=== PATIENT | male | born 1985 | race Caucasian/White ===

== ENCOUNTER 2017-08-08 10:29 | Emergency (ER) | payer OTHER ==
[2017-08-08] MEDS: FLUORESCEIN OPHTH 1 MG STRIP OD (11:30)
[2017-08-08] MEDS: TETRACAINE 0.5% OPHTH SOLN 4ML OD (11:30)
== END 2017-08-08 12:01 | disposition home or self-care (01) ==
LOC: M ED 10:29
DX: S05.01XA Injury of conjunctiva and corneal abrasion without foreign body, right eye, initial encounter (principal); W31.1XXA Contact with metalworking machines, initial encounter; Y92.89 Other specified places as the place of occurrence of the external cause
CPT/HCPCS: 99283

== ENCOUNTER → 2020-02-29 | Outpatient (CLI) | payer BC, OTHER ==
[~2020-02-29] MED LIST: TOBR0.3S37 OP
[2020-02-29 15:56] LABS: HEMATOCRIT 47.4 % (42.0-52.0); HEMOGLOBIN 15.6 g/dl (13.5-17.5); MEAN CORPUSCULAR HEMOGLOBIN 29.9 pg (27.0-33.0); MEAN CORPUSCULAR HGB CONC 32.9 g/dl (32.0-36.5); MEAN CORPUSCULAR VOLUME 90.8 fl (80.0-96.0); PLATELET COUNT, AUTOMATED 275 10^3/uL (150-450); RED BLOOD COUNT 5.22 10^6/uL (4.30-6.10); WHITE BLOOD COUNT 8.8 10^3/uL (4.0-10.0)
[2020-02-29 16:04] LABS: ALBUMIN 3.8 GM/DL (3.2-5.2); ALT/SGPT 65 U/L (12-78); BILIRUBIN,TOTAL 0.8 MG/DL (0.2-1.0); BLOOD UREA NITROGEN 20 MG/DL (7-18); CALCIUM LEVEL 9.1 MG/DL (8.5-10.1); CARBON DIOXIDE LEVEL 30 MEQ/L (21-32); CHLORIDE LEVEL 103 MEQ/L (98-107); CHOLESTEROL LEVEL 134 MG/DL (<200); CREATININE FOR GFR 1.09 MG/DL (0.70-1.30); FREE T4 1.07 NG/DL (0.76-1.46); GLOMERULAR FILTRATION RATE > 60.0 (>60); GLUCOSE, FASTING 95 MG/DL (70-100); HDL CHOLESTEROL 42 MG/DL (>40); LDL CHOLESTEROL 48 MG/DL (<100); NON-HDL-C 92 MG/DL; POTASSIUM SERUM 4.4 MEQ/L (3.5-5.1); SODIUM LEVEL 139 MEQ/L (136-145); TOTAL PROTEIN 6.9 GM/DL (6.4-8.2); TRIGLYCERIDES LEVEL 219 MG/DL (<150)
[2020-02-29 16:28] LABS: HEMOGLOBIN A1c 5.7 %
[2020-03-02 11:55] LABS: TOTAL 25(OH) VITAMIN D 15.9 NG/ML (30.0-100.0)
== END ==
LOC: M WUC 09:26
PROVIDERS: ATTEND Physician Assistant
DX: Z00.00 Encounter for general adult medical examination without abnormal findings (principal); Z13.1 Encounter for screening for diabetes mellitus; I11.9 Hypertensive heart disease without heart failure; Z13.29 Encounter for screening for other suspected endocrine disorder; Z13.220 Encounter for screening for lipoid disorders

== ENCOUNTER → 2020-06-22 | Outpatient (CLI) | payer BC | LOC: M LABSMTC 10:13 | PROVIDERS: ATTEND Family Medicine | DX: Z20.822 Contact with and (suspected) exposure to COVID-19 (principal) | CPT/HCPCS: C9803; U0003 ==

== ENCOUNTER → 2021-08-26 | Outpatient (CLI) | payer BC | LOC: M EKG 12:35 | DX: R00.1 Bradycardia, unspecified (principal) ==

== ENCOUNTER → 2021-08-26 | Outpatient (CLI) | payer BC ==
[2021-08-26 10:26] LABS: HEMATOCRIT 47.7 % (42.0-52.0); HEMOGLOBIN 16.3 g/dl (13.5-17.5); MEAN CORPUSCULAR HEMOGLOBIN 30.5 pg (27.0-33.0); MEAN CORPUSCULAR HGB CONC 34.2 g/dl (32.0-36.5); MEAN CORPUSCULAR VOLUME 89.2 fl (80.0-96.0); PLATELET COUNT, AUTOMATED 306 10^3/uL (150-450); RED BLOOD COUNT 5.35 10^6/uL (4.30-6.10); WHITE BLOOD COUNT 9.5 10^3/uL (4.0-10.0)
[2021-08-26 10:56] LABS: HEMOGLOBIN A1c 5.4 %
[2021-08-26 11:01] LABS: ALBUMIN 4.1 GM/DL (3.2-5.2); ALT/SGPT 66 U/L (12-78); BILIRUBIN,TOTAL 0.5 MG/DL (0.2-1.0); BLOOD UREA NITROGEN 23 MG/DL (7-18); C REACTIVE PROTEIN QUANTITATIV 1.34 MG/DL (0.00-0.30); CALCIUM LEVEL 9.5 MG/DL (8.5-10.1); CARBON DIOXIDE LEVEL 31 MEQ/L (21-32); CHLORIDE LEVEL 103 MEQ/L (98-107); CHOLESTEROL LEVEL 119 MG/DL (<200); CHOLESTEROL RISK RATIO 2.644 (<5); CREATININE FOR GFR 0.95 MG/DL (0.70-1.30); FREE T4 0.99 NG/DL (0.76-1.46); GLOMERULAR FILTRATION RATE > 60.0 (>60); GLUCOSE, FASTING 98 MG/DL (70-100); HDL CHOLESTEROL 45 MG/DL (>40); LDL CHOLESTEROL 42 MG/DL (<100); NON-HDL-C 74 MG/DL; SODIUM LEVEL 140 MEQ/L (136-145); TOTAL PROTEIN 6.9 GM/DL (6.4-8.2); TRIGLYCERIDES LEVEL 159 MG/DL (<150)
[2021-08-26 11:06] LABS: TOTAL 25(OH) VITAMIN D 35.7 NG/ML (30.0-100.0)
[2021-08-26 11:11] LABS: MALB URINE SIEMENS 12.1 MG/L; MAU/CREAT RATIO 5.2 MCG/MG (0.0-30.0)
== END ==
LOC: M PLALAB 08:34
PROVIDERS: ATTEND Internal Medicine Hematology
DX: E66.9 Obesity, unspecified (principal); Z68.43 Body mass index [BMI] 50.0-59.9, adult

== ENCOUNTER → 2021-09-02 | Outpatient (CLI) | payer BC | LOC: M CARPUL 14:57 | PROVIDERS: ATTEND Internal Medicine Hematology | DX: I42.2 Other hypertrophic cardiomyopathy (principal); Q87.89 Other specified congenital malformation syndromes, not elsewhere classified; Z68.43 Body mass index [BMI] 50.0-59.9, adult ==

== ENCOUNTER → 2022-01-14 | Outpatient (CLI) | payer BC, OTHER | LOC: M SLEEP 20:00 | PROVIDERS: ATTEND Nurse Practitioner Family | DX: G47.33 Obstructive sleep apnea (adult) (pediatric) (principal) ==

== ENCOUNTER → 2022-04-07 | Outpatient (REF) | LOC: M LAB 12:59 | PROVIDERS: ATTEND Nurse Practitioner Adult Health | DX: Z00.00 Encounter for general adult medical examination without abnormal findings (principal) ==

== ENCOUNTER → 2022-07-19 | Outpatient (REF) | LOC: M EMP 09:49 | PROVIDERS: ATTEND Family Medicine | DX: Z11.52 Encounter for screening for COVID-19 (principal) ==

== ENCOUNTER 2022-12-06 08:11 | Emergency (ER) | payer BC, OTHER ==
[~2022-12-06] VITALS: Ht 170.2 cm; Wt 153.2 kg
[2022-12-06] MEDS ORDERED: ASPIRIN 81MG CHEW TABLET PO ONE (08:20)
[2022-12-06 08:26] VITALS: TEMP 98.7
[2022-12-06 08:40] LABS: HEMATOCRIT 50.9 % (42.0-52.0); HEMOGLOBIN 17.6 g/dl (13.5-17.5); MEAN CORPUSCULAR HEMOGLOBIN 30.1 pg (27.0-33.0); MEAN CORPUSCULAR HGB CONC 34.6 g/dl (32.0-36.5); PLATELET COUNT, AUTOMATED 440 10^3/uL (150-450); RED BLOOD COUNT 5.85 10^6/uL (4.30-6.10); WHITE BLOOD COUNT 14.6 10^3/uL (4.0-10.0)
[2022-12-06] MEDS ORDERED: OMEP-173 (08:46)
[2022-12-06] MEDS ORDERED: GABA-1171 (08:46)
[2022-12-06] MEDS ORDERED: IBUP80TA (08:46)
[2022-12-06] MEDS ORDERED: TRAN1TAB55 (08:46)
[2022-12-06] MEDS ORDERED: CHLO125TA (08:46)
[2022-12-06 09:06] LABS: ATYPICAL LYMPH 15 % (0-5); BASOPHILS 3 % (0-1); EOSINOPHILS 1 % (0-3); LYMPHOCYTES 22 % (16-44); MONOCYTES 7 % (0-5); NEUTROPHILS 51 % (28-66)
[2022-12-06 09:07] LABS: CK-MB VALUE MASS 3.4 NG/ML (<3.6); LIPASE 35 U/L (12-53)
[2022-12-06 09:08] LABS: PLATELET ESTIMATE NORMAL (NORMAL)
[2022-12-06 09:09] LABS: ALBUMIN 4.5 G/DL (3.2-5.2); ALKALINE PHOSPHATASE 75 U/L (46-116); ALT/SGPT 56 U/L (7.0-40); AST/SGOT 28 U/L (<34); BILIRUBIN,DIRECT 0.3 MG/DL (<0.4); BILIRUBIN,TOTAL 0.9 MG/DL (0.3-1.2); BLOOD UREA NITROGEN 21 MG/DL (9-23); CALCIUM LEVEL 9.9 MG/DL (8.5-10.1); CARBON DIOXIDE LEVEL 26 MMOL/L (20-31); CHLORIDE LEVEL 100 MMOL/L (98-107); CREATININE FOR GFR 1.03 MG/DL (0.70-1.30); GLOMERULAR FILTRATION RATE > 60.0 (>60); GLUCOSE, FASTING 128 MG/DL (60-100); POTASSIUM SERUM 3.1 MMOL/L (3.5-5.1); SODIUM LEVEL 139 MMOL/L (136-145); TOTAL PROTEIN 7.5 G/DL (5.7-8.2)
[2022-12-06 09:11] LABS: FREE T4 1.36 NG/DL (0.89-1.76); THYROID STIMULATING HORMONE 1.816 uIU/ML (0.55-4.78)
[2022-12-06 09:15] LABS: CPK CREATINE PHOSPHOKINASE 243 U/L (46-171); MB/CK RELATIVE INDEX 1.39 (< OR =4)
[2022-12-06] MEDS ORDERED: POTASSIUM CHLORIDE 10MEQ SR TABLET PO ONE (09:50)
[2022-12-06 09:58] LABS: CK-MB VALUE MASS 2.7 NG/ML (<3.6)
[2022-12-06 10:05] LABS: CPK CREATINE PHOSPHOKINASE 200 U/L (46-171); MB/CK RELATIVE INDEX 1.35 (< OR =4)
[2022-12-06] MEDS ORDERED: ISOVUE-370 76% 100ML VIAL As Ordered ONE (10:21)
[2022-12-06 12:20] VITALS: BP 143/70; O2SAT 98
== END 2022-12-06 12:22 | disposition home or self-care (01) ==
LOC: M ED 08:11
DX: R00.2 Palpitations (principal); R91.8 Other nonspecific abnormal finding of lung field; I10 Essential (primary) hypertension; G47.33 Obstructive sleep apnea (adult) (pediatric); Z82.49 Family history of ischemic heart disease and other diseases of the circulatory system; Z91.018 Allergy to other foods; Z91.030 Bee allergy status
CPT/HCPCS: 36415; 71045; 71275; 80048; 80076; 82550; 82553; 83690; 84439; 84443; 84484; 85025; 93005; 93041; 94760; 99285; Q9967

== ENCOUNTER → 2023-03-28 | Outpatient (CLI) | payer BC ==
[~2023-03-28] MED LIST changes: +CHLO125TA; +GABA-1171; +IBUP80TA; +OMEP-173; +TRAN1TAB55
[2023-03-28 14:21] LABS: HEMATOCRIT 50.2 % (42.0-52.0); HEMOGLOBIN 16.9 g/dl (13.5-17.5); MEAN CORPUSCULAR HEMOGLOBIN 29.4 pg (27.0-33.0); MEAN CORPUSCULAR HGB CONC 33.7 g/dl (32.0-36.5); MEAN CORPUSCULAR VOLUME 87.3 fl (80.0-96.0); PLATELET COUNT, AUTOMATED 306 10^3/uL (150-450); RED BLOOD COUNT 5.75 10^6/uL (4.30-6.10); WHITE BLOOD COUNT 9.1 10^3/uL (4.0-10.0)
[2023-03-28 14:35] LABS: HEMOGLOBIN A1c 5.1 % (4.0-6.0)
[2023-03-28 14:56] LABS: THYROID STIMULATING HORMONE 1.121 uIU/ML (0.55-4.78)
[2023-03-28 14:57] LABS: ALBUMIN 4.1 G/DL (3.2-5.2); ALKALINE PHOSPHATASE 60 U/L (46-116); ALT/SGPT 41 U/L (7.0-40); AST/SGOT 22 U/L (<34); BILIRUBIN,TOTAL 0.8 MG/DL (0.3-1.2); BLOOD UREA NITROGEN 20 MG/DL (9-23); CALCIUM LEVEL 9.2 MG/DL (8.5-10.1); CARBON DIOXIDE LEVEL 28 MMOL/L (20-31); CHLORIDE LEVEL 101 MMOL/L (98-107); CHOLESTEROL LEVEL 158 MG/DL (<200); CHOLESTEROL RISK RATIO 3.17 (<5); CREATININE FOR GFR 0.95 MG/DL (0.70-1.30); GLOMERULAR FILTRATION RATE > 60.0 (>60); GLUCOSE, FASTING 94 MG/DL (60-100); HDL CHOLESTEROL 49.7 MG/DL (>40); LDL CHOLESTEROL 80.3 MG/DL (<100); NON-HDL-C 108.3 MG/DL; POTASSIUM SERUM 4.2 MMOL/L (3.5-5.1); SODIUM LEVEL 138 MMOL/L (136-145); TRIGLYCERIDES LEVEL 140 MG/DL (<150)
[2023-03-28 14:58] LABS: TOTAL 25(OH) VITAMIN D 35.3 NG/ML (20.0-100.0); VITAMIN B12 LEVEL 433 PG/ML (211-911)
[2023-03-28 15:13] LABS: CREATININE, URINE 350.1 MG/DL; MAU/CREAT RATIO 17.9 MCG/MG (0.0-30.0)
[2023-03-28 15:20] LABS: HIV 1&2 SCREEN NEGATIVE (NEGATIVE)
[2023-03-28 15:28] LABS: HEPATITIS C VIRUS ABY INDEX 0.02 INDEX (<0.8)
[2023-03-28 15:53] LABS: CHLAMYDIA DNA AMPLIFICATION NEGATIVE (NEGATIVE); GC DNA AMPLIFICATION NEGATIVE (NEGATIVE)
[2023-03-29 16:08] LABS: HEPATITIS B CORE ANTIBODY IGG Negative (Negative); INSULIN LEVEL 28.3 uIU/mL (2.6-24.9); LIPOPROTEIN (a) 79.4 nmol/L (<75.0)
== END ==
LOC: M PLALAB 09:44
PROVIDERS: ATTEND Internal Medicine Hematology
DX: A64 Unspecified sexually transmitted disease (principal)

== ENCOUNTER → 2023-04-12 | Outpatient (CLI) | payer BC, OTHER, SELFPAY | LOC: M SLEEP 20:00 | PROVIDERS: ATTEND Nurse Practitioner Family | DX: G47.33 Obstructive sleep apnea (adult) (pediatric) (principal) ==

== ENCOUNTER → 2023-04-13 | Outpatient (REF) | LOC: M CARPUL 08:09 | PROVIDERS: ATTEND Nurse Practitioner Adult Health | DX: Z02.89 Encounter for other administrative examinations (principal) ==

== ENCOUNTER 2023-05-12 09:23 | Emergency (ER) | payer BC, SELFPAY ==
[~2023-05-12] VITALS: Ht 170.2 cm; Wt 158.0 kg
[2023-05-12] MEDS ORDERED: ASPI81CH33 PO (09:32)
[2023-05-12] MEDS ORDERED: METF500T13 PO (09:32)
[2023-05-12] MEDS ORDERED: ACET500P3 PO (09:34)
[2023-05-12] MEDS ORDERED: diazePAM 10MG/2ML SYRINGE IV ONE (11:50)
[2023-05-12] MEDS ORDERED: LIDOCAINE 5% (LIDODERM) PATCH TD ONE (11:50)
[2023-05-12] MEDS ORDERED: KETOROLAC 30 MG/ML 1ML VIAL IV ONE (11:50)
[2023-05-12] MEDS ORDERED: ACETAMINOPHEN *IV* 1,000 MG in IV 1 EA IV ONE (11:50)
[2023-05-12] MEDS ORDERED: dexAMETHasone 20MG/5ML VIAL IV ONE (11:50)
[2023-05-12 12:12] VITALS: BP 139/82; TEMP 97.2; O2SAT 97
[2023-05-12] MEDS ORDERED: LIDO5DIS41 TOP (13:34)
[2023-05-12] MEDS ORDERED: KETO10TAB PO (13:34)
[2023-05-12] MEDS ORDERED: CYCL-707 PO (13:34)
== END 2023-05-12 13:50 | disposition home or self-care (01) ==
LOC: M ED 09:23
DX: S39.012A Strain of muscle, fascia and tendon of lower back, initial encounter (principal); E11.9 Type 2 diabetes mellitus without complications; I10 Essential (primary) hypertension; Z91.030 Bee allergy status; Z91.018 Allergy to other foods; Z79.82 Long term (current) use of aspirin; Z79.4 Long term (current) use of insulin; Z79.83 Long term (current) use of bisphosphonates; Z79.899 Other long term (current) drug therapy; Y92.9 Unspecified place or not applicable; Y93.54 Activity, bowling; Y99.9 Unspecified external cause status
CPT/HCPCS: 72131; 96374; 96375; 99284; J0131; J1100; J1885; J3360

== ENCOUNTER → 2023-05-23 | Outpatient (CLI) | payer BC ==
[~2023-05-23] MED LIST changes: +ACET500P3 PO; +ASPI81CH33 PO; +CYCL-707 PO; +KETO10TAB PO; +LIDO5DIS41 TOP; +METF500T13 PO
== END ==
LOC: M RAD 15:33
PROVIDERS: ATTEND Orthopaedic Surgery
DX: M79.601 Pain in right arm (principal)

== ENCOUNTER → 2023-06-21 | Outpatient (CLI) | payer BC ==
[~2023-06-21] MED LIST changes: +ISOVUE-M 300 61% 15ML VIAL As Ordered ONE; +TIZA4CAP6 PO
[2023-06-21 11:20] VITALS: TEMP 98.4
[2023-06-21 11:45] LABS: HEMATOCRIT 47.6 % (42.0-52.0); HEMOGLOBIN 16.2 g/dl (13.5-17.5); MEAN CORPUSCULAR HEMOGLOBIN 29.3 pg (27.0-33.0); MEAN CORPUSCULAR VOLUME 86.2 fl (80.0-96.0); PLATELET COUNT, AUTOMATED 377 10^3/uL (150-450); RED BLOOD COUNT 5.52 10^6/uL (4.30-6.10); WHITE BLOOD COUNT 16.4 10^3/uL (4.0-10.0)
[2023-06-21 11:55] LABS: INR 1.02; PROTHROMBIN TIME 13.1 SECONDS (12.5-14.5)
[2023-06-21 14:15] VITALS: BP 127/69; O2SAT 99
== END ==
LOC: M IRPRO 11:08
PROVIDERS: ATTEND Orthopaedic Surgery
DX: M48.061 Spinal stenosis, lumbar region without neurogenic claudication (principal)
CPT/HCPCS: 36415; 62284; 72131; 85027; 85610; Q9967

== ENCOUNTER 2023-08-04 07:08 | Day surgery (SDC) | payer BC ==
[~2023-08-04] VITALS: Ht 170.2 cm; Wt 159.2 kg
[~2023-08-04 07:08] MED LIST changes: +ACET-897 PO; +ASPI81TA26 PO; +CHLO25TA PO; +ERGO500029 PO; +GABA-282 PO; +GLYCOPYRROLATE INJ 0.2 MG/ML 2 ML VIAL As Ordered ONE; +IBUP1TAB7 PO; -ISOVUE-M 300 61% 15ML VIAL As Ordered ONE; +KETOROLAC 60MG 2ML VIAL As Ordered ONE; +LIDOCAINE 2% 100MG/5ML SDV (FOR ANES.) As Ordered ONE; +MIDAZOLAM INJ 2MG/2ML VIAL As Ordered ONE; +OMEP1CAP73 PO; +ONDANSETRON 4MG 2ML VIAL As Ordered ONE; +TRAM50TA2 PO; +TRAN1TAB56 PO; +fentaNYL 100 MCG/2 ML INJECTION As Ordered ONE; +propofoL 200 MG/20 ML VIAL As Ordered ONE
[2023-08-04] MEDS ORDERED: LR 1,000 ML IV SCH ×2 (07:35→09:55)
[2023-08-04] MEDS ORDERED: propofoL 500 MG/50 ML VIAL As Ordered ONE (08:21)
[2023-08-04] MEDS ORDERED: KETAMINE HCL 200MG/20ML VIAL As Ordered ONE (08:53)
[2023-08-04] MEDS: ceFAZolin SOD 1 GM in D5W MINI-BAG PLUS 50 ML IV ONE (08:56)
[2023-08-04] MEDS: ceFAZolin SOD 2 GM in IV 1 EA IV ONE (08:56)
[2023-08-04] MEDS ORDERED: LABETALOL 100MG/20ML VIAL As Ordered ONE (08:57)
[2023-08-04] MEDS ORDERED: ROCURONIUM BROMIDE 50MG/5ML VIAL As Ordered ONE (09:16)
[2023-08-04] MEDS: LIDOCAINE W/EPINEPHRINE 1% 20ML VIAL As Ordered ONE (09:33)
[2023-08-04] MEDS: BACITRACIN OINTMENT 30GM TUBE As Ordered ONE (09:35)
[2023-08-04] MEDS ORDERED: fentaNYL 100 MCG/2 ML INJECTION IV PRN (09:55)
[2023-08-04] MEDS ORDERED: ONDANSETRON 4MG 2ML VIAL IV PRN (09:55)
[2023-08-04] MEDS: oxyCODONE 5MG TAB PO PRN (10:19)
[2023-08-04] MEDS: HYDROMORPHONE HCL 0.5 MG/ 0.5 ML SYRINGE IV PRN (10:20)
[2023-08-04 11:38] VITALS: BP 149/76; TEMP 97.9; O2SAT 97
== END 2023-08-04 13:00 | disposition home or self-care (01) ==
LOC: M SDC 07:08
PROVIDERS: ATTEND Orthopaedic Surgery Hand Surgery
DX: M79.5 Residual foreign body in soft tissue (principal); I10 Essential (primary) hypertension; R73.03 Prediabetes; G47.30 Sleep apnea, unspecified; Z79.899 Other long term (current) drug therapy; K21.9 Gastro-esophageal reflux disease without esophagitis; Z90.49 Acquired absence of other specified parts of digestive tract; Z91.030 Bee allergy status; Z91.011 Allergy to milk products
CPT/HCPCS: 24201; 76000; 88300; J0665; J0690; J1100; J1170; J1885; J1920; J2250; J2405; J3010

== ENCOUNTER → 2023-08-10 | Outpatient (CLI) | payer BC ==
[~2023-08-10] MED LIST changes: -GLYCOPYRROLATE INJ 0.2 MG/ML 2 ML VIAL As Ordered ONE; -KETOROLAC 60MG 2ML VIAL As Ordered ONE; -LIDOCAINE 2% 100MG/5ML SDV (FOR ANES.) As Ordered ONE; -MIDAZOLAM INJ 2MG/2ML VIAL As Ordered ONE; -ONDANSETRON 4MG 2ML VIAL As Ordered ONE; +TIZA4CAP3 PO; -TIZA4CAP6 PO; -fentaNYL 100 MCG/2 ML INJECTION As Ordered ONE; -propofoL 200 MG/20 ML VIAL As Ordered ONE
== END ==
LOC: M PLAIMG 07:32
PROVIDERS: ATTEND Orthopaedic Surgery
DX: M48.062 Spinal stenosis, lumbar region with neurogenic claudication (principal); M47.27 Other spondylosis with radiculopathy, lumbosacral region; M51.26 Other intervertebral disc displacement, lumbar region; M51.27 Other intervertebral disc displacement, lumbosacral region; M51.37 Other intervertebral disc degeneration, lumbosacral region

== ENCOUNTER → 2023-12-06 | Outpatient (RCR) | payer BC | LOC: M PT 11-28 07:05 | PROVIDERS: ATTEND Orthopaedic Surgery Orthopaedic Surgery of the Spine | DX: M54.16 Radiculopathy, lumbar region (principal); Z98.1 Arthrodesis status ==

== ENCOUNTER 2023-12-15 07:42 | Outpatient (RCR) | payer BC | END 2024-01-06 | LOC: M PT 07:42 | PROVIDERS: ATTEND Orthopaedic Surgery Orthopaedic Surgery of the Spine | DX: Z98.1 Arthrodesis status (principal) ==

== ENCOUNTER → 2024-03-11 | Outpatient (CLI) | payer BC ==
[~2024-03-11] MED LIST changes: +GABA-1172 PO; -GABA-282 PO
[2024-03-11 13:40] LABS: HIV 1&2 SCREEN NEGATIVE (NEGATIVE)
[2024-03-11 14:34] LABS: Trichomonas vaginalis (AMP) NOT DETECTED (NEGATIVE)
[2024-03-11 14:58] LABS: GC DNA AMPLIFICATION NEGATIVE (NEGATIVE)
== END ==
LOC: M PLALAB 10:09
PROVIDERS: ATTEND Physician Assistant Medical
DX: Z72.51 High risk heterosexual behavior (principal)

== ENCOUNTER → 2024-05-29 | Outpatient (REF) | LOC: M EMP 09:21 | PROVIDERS: ATTEND Family Medicine | DX: Z01.89 Encounter for other specified special examinations (principal) ==

== ENCOUNTER → 2024-07-31 | Outpatient (REF) | LOC: M CARPUL 09:51 | PROVIDERS: ATTEND Nurse Practitioner Adult Health | DX: Z02.1 Encounter for pre-employment examination (principal) ==

== ENCOUNTER → 2024-08-01 | Outpatient (CLI) | payer BC | LOC: M PLALAB 13:58 | PROVIDERS: ATTEND Physician Assistant Medical | DX: R06.00 Dyspnea, unspecified (principal) ==

== ENCOUNTER → 2024-08-06 | Outpatient (CLI) | payer BC | LOC: M RAD 07:22 | PROVIDERS: ATTEND Nurse Practitioner | DX: Z98.890 Other specified postprocedural states (principal); M48.062 Spinal stenosis, lumbar region with neurogenic claudication; M54.40 Lumbago with sciatica, unspecified side; M54.16 Radiculopathy, lumbar region ==

== ENCOUNTER → 2024-08-30 | Outpatient (REF) | payer BC | LOC: M LAB REF 12:18 | PROVIDERS: ATTEND Physician Assistant | DX: B34.9 Viral infection, unspecified (principal) ==

== ENCOUNTER → 2024-09-09 | Outpatient (CLI) | payer BC ==
[2024-09-09 15:02] LABS: BASO # 0.1 10^3/uL (0.0-0.2); BASO % 0.6 % (0.0-1.0); EOS # 0.3 10^3/uL (0.0-0.5); EOS % 2.6 % (0.0-3.0); HEMATOCRIT 41.1 % (42.0-52.0); HEMOGLOBIN 13.1 g/dl (13.5-17.5); LYMPH # 2.2 10^3/uL (1.5-5.0); LYMPH % 20.3 % (24.0-44.0); MEAN CORPUSCULAR HEMOGLOBIN 26.4 pg (27.0-33.0); MEAN CORPUSCULAR HGB CONC 31.9 g/dl (32.0-36.5); MEAN CORPUSCULAR VOLUME 82.7 fl (80.0-96.0); MONO # 0.6 10^3/uL (0.0-0.8); MONO % 5.6 % (2.0-8.0); NEUTROPHILS # 7.7 10^3/uL (1.5-8.5); NEUTROPHILS % 69.9 % (36.0-66.0); PLATELET COUNT, AUTOMATED 360 10^3/uL (150-450); RED BLOOD COUNT 4.97 10^6/uL (4.30-6.10)
[2024-09-09 15:16] LABS: BLOOD UREA NITROGEN 21 MG/DL (9-23); CALCIUM LEVEL 9.1 MG/DL (8.5-10.1); CARBON DIOXIDE LEVEL 27 MMOL/L (20-31); CHLORIDE LEVEL 104 MMOL/L (98-107); CREATININE FOR GFR 0.75 MG/DL (0.70-1.30); GLOMERULAR FILTRATION RATE > 90.0 (>60); GLUCOSE, FASTING 121 MG/DL (60-100); POTASSIUM SERUM 3.8 MMOL/L (3.5-5.1); SODIUM LEVEL 139 MMOL/L (136-145)
== END ==
LOC: M PLALAB 11:18
PROVIDERS: ATTEND Nurse Practitioner Family
DX: J18.9 Pneumonia, unspecified organism (principal)